=== PATIENT | female | born 1990 | race Two or more races ===

== ENCOUNTER → 2020-08-01 | Outpatient (CLI) | payer MEDICAID | END | disposition home or self-care (01) | LOC: STAR 13:07 | PROVIDERS: ATTEND Obstetrics & Gynecology | DX: Z20.822 Contact with and (suspected) exposure to COVID-19 (principal) | CPT/HCPCS: U0003; U0005 ==

== ENCOUNTER 2020-08-06 05:37 | Inpatient (IN) | payer MEDICAID ==
[~2020-08-06] VITALS: Ht 162.6 cm; Wt 72.2 kg
[2020-08-06] MEDS ORDERED: SODIUM CITRATE/CITRIC ACID 30 ML UDC PO ONE (06:00)
[2020-08-06] MEDS ORDERED: METOCLOPRAMIDE 5 MG/ML, 2ML IV ONE (06:00)
[2020-08-06] MEDS ORDERED: LACTATED RINGERS 1,000 ML IVBOLUS ONE (06:00)
[2020-08-06] MEDS ORDERED: PLEASE ENTER HEIGHT AND WEIGHT MC SCH (06:00)
[2020-08-06 06:52] LABS: BASOPHILS % (AUTO) 0 % (0-1); EOSINOPHILS % (AUTO) 2 % (1-7); LYMPHOCYTES % (AUTO) 25 % (22-44); MEAN CORPUSCULAR HEMOGLOBIN 30.4 pg (27.0-34.8); MEAN CORPUSCULAR HGB CONC 34.7 g/dL (32.4-35.8); MEAN PLATELET VOLUME 7.3 fL (7.4-10.4); MONOCYTES % (AUTO) 8 % (2-9); NEUTROPHILS % (AUTO) 65 % (42-75); PLATELET COUNT 319 x10^3/uL (130-400); RED BLOOD COUNT 4.08 x10^6/uL (3.82-5.3); RED CELL DISTRIBUTION WIDTH 13.9 % (9.6-15.2)
[2020-08-06] MEDS ORDERED: NEWBORN KIT ONE (06:57)
[2020-08-06] MEDS ORDERED: SODIUM CITRATE/CITRIC ACID 15 ML UDC ONE (06:59)
[2020-08-06] MEDS ORDERED: KETOROLAC 30 MG/1 ML ONE (07:16)
[2020-08-06] MEDS ORDERED: PHENYLEPHRINE 10 MG/ML ONE (07:16)
[2020-08-06] MEDS ORDERED: CEFAZOLIN 1,000 MG ONE (07:16)
[2020-08-06] MEDS ORDERED: ONDANSETRON 2MG/ML, 2ML ONE (07:16)
[2020-08-06] MEDS ORDERED: DEXAMETHASONE 4 MG/ML, 1ML ONE (07:16)
[2020-08-06] MEDS ORDERED: OXYTOCIN 10 UNITS/ML, 1ML ONE (07:16)
[2020-08-06] MEDS ORDERED: EPHEDRINE 50 MG/ML, 1ML ONE (07:16)
[2020-08-06] MEDS ORDERED: FENTANYL PF 100 MCG/2ML ONE (07:17)
[2020-08-06] MEDS ORDERED: PROMETHAZINE 25 MG/ML, 1ML IV PRN (07:30)
[2020-08-06] MEDS ORDERED: ONDANSETRON 2MG/ML, 2ML IVPush PRN (07:30)
[2020-08-06] MEDS ORDERED: ACETAMINOPHEN 325 MG TABLET PO PRN ×2 (07:30)
[2020-08-06] MEDS ORDERED: KETOROLAC 30 MG/1 ML IV PRN (07:30)
[2020-08-06] MEDS ORDERED: HYDROcodone/APAP 7.5-325MG/15ML UDC PO PRN (07:30)
[2020-08-06] MEDS ORDERED: ONDANSETRON 2MG/ML, 2ML IV PRN (07:30)
[2020-08-06] MEDS: LACTATED RINGERS 1,000 ML IV SCH ×8 (07:30→23:30)
[2020-08-06] MEDS ORDERED: hydrALAzine 20 MG/ML, 1ML IV PRN (07:30)
[2020-08-06] MEDS ORDERED: LABETALOL 5MG/ML, 20ML IV PRN (07:30)
[2020-08-06] MEDS ORDERED: morphine SULFATE 10 MG/ML, 1ML IM PRN (07:30)
[2020-08-06] MEDS ORDERED: MIDAZOLAM 1 MG/ML, 2ML IV PRN (07:30)
[2020-08-06] MEDS ORDERED: METOPROLOL 1 MG/ML, 5ML IV PRN (07:30)
[2020-08-06] MEDS ORDERED: MEPERIDINE/PF 25MG/0.5ML IVPush PRN (07:30)
[2020-08-06] MEDS ORDERED: ALBUTEROL SULFATE 2.5 MG/3 ML NPPB PRN (07:30)
[2020-08-06] MEDS ORDERED: DIPH,PERTUSS(ACELL),TET VAC/PF NC IM-VACC PRN (07:30)
[2020-08-06] MEDS ORDERED: FENTANYL PF 100 MCG/2ML IV PRN (07:30)
[2020-08-06] MEDS ORDERED: MEASLES,MUMPS&RUBELLA VACC/PF 0.5 ML SQ-VACC PRN (07:30)
[2020-08-06] MEDS ORDERED: CALCIUM CARBONATE 500 MG TAB.CHEW PO PRN (07:30)
[2020-08-06] MEDS ORDERED: HYDROmorphone 2 MG/ML, 1ML IVPush PRN (07:30)
[2020-08-06] MEDS ORDERED: EPHEDRINE 50 MG/ML, 1ML IVPush PRN (07:30)
[2020-08-06] MEDS ORDERED: OXYcodone 5 MG/5 ML ORAL.SOL UDC PO PRN (07:30)
[2020-08-06] MEDS ORDERED: MORPHINE SULFATE 4 MG/ML, 1ML IVPush PRN (07:30)
[2020-08-06] MEDS: KETOROLAC 30 MG/1 ML IV SCH ×3 (07:30→21:18)
[2020-08-06] MEDS ORDERED: MISOPROSTOL 200 MCG TABLET PR PRN (07:30)
[2020-08-06 07:43] LABS: AMPHETAMINE SCREEN, URINE Negative (Negative); BARBITURATE SCREEN, URINE Negative (Negative); BENZODIAZEPINE SCREEN, URINE Negative (Negative); CANNABINOID SCREEN, URINE Negative (Negative); COCAINE SCREEN, URINE Negative (Negative); METHADONE SCREEN, URINE Negative (Negative); OPIATE SCREEN, URINE Negative (Negative)
[2020-08-06] MEDS ORDERED: HYDROmorphone 2 MG/ML, 1ML ONE (07:48)
[2020-08-06] MEDS: OXYTOCIN 30U/ 0.9% NaCL 500ML 500 ML IV SCH ×2 (10:17→17:30)
[2020-08-06 10:40] VITALS: BP 111/68
[2020-08-06] MEDS: OXYcodone/APAP 5/325MG TABLET PO PRN ×4 (11:11→20:33)
[2020-08-06] MEDS ORDERED: DIPHENHYDRAMINE 25 MG CAPSULE PO PRN (12:30)
[2020-08-06] MEDS: PRENATAL VIT/IRON/FA 1 EACH TABLET PO SCH (12:41)
[2020-08-06 16:00] VITALS: BP 110/63
[2020-08-06 16:08] LABS: BASOPHILS % (AUTO) 0 % (0-1); EOSINOPHILS % (AUTO) 0 % (1-7); LYMPHOCYTES % (AUTO) 5 % (22-44); MEAN CORPUSCULAR HEMOGLOBIN 30.1 pg (27.0-34.8); MEAN CORPUSCULAR HGB CONC 34.2 g/dL (32.4-35.8); MEAN PLATELET VOLUME 7.8 fL (7.4-10.4); MONOCYTES % (AUTO) 3 % (2-9); NEUTROPHILS % (AUTO) 92 % (42-75); PLATELET COUNT 297 x10^3/uL (130-400); RED BLOOD COUNT 3.91 x10^6/uL (3.82-5.3); RED CELL DISTRIBUTION WIDTH 13.8 % (9.6-15.2)
[2020-08-06] MEDS: DOCUSATE 100 MG CAPSULE PO PRN (20:33)
[2020-08-07 00:15] VITALS: BP 100/55
[2020-08-07] MEDS: OXYcodone/APAP 5/325MG TABLET PO PRN ×6 (00:30→23:58)
[2020-08-07] MEDS: LACTATED RINGERS 1,000 ML IV SCH (03:30)
[2020-08-07] MEDS: OXYTOCIN 30U/ 0.9% NaCL 500ML 500 ML IV SCH (03:30)
[2020-08-07] MEDS: KETOROLAC 30 MG/1 ML IV SCH ×4 (03:31→22:15)
[2020-08-07 04:30] VITALS: BP 116/62
[2020-08-07 07:10] VITALS: BP 96/58
[2020-08-07] MEDS: SERTRALINE 50MG TABLET PO SCH (09:00)
[2020-08-07] MEDS: PRENATAL VIT/IRON/FA 1 EACH TABLET PO SCH (09:00)
[2020-08-07] MEDS: DOCUSATE 100 MG CAPSULE PO PRN ×2 (09:21→19:38)
[2020-08-07 20:30] VITALS: BP 110/66
[2020-08-07] MEDS ORDERED: IBUPROFEN 600 MG TABLET ONE (23:55)
[2020-08-08] MEDS: OXYcodone/APAP 5/325MG TABLET PO PRN ×5 (03:12→21:52)
[2020-08-08] MEDS ORDERED: IBUPROFEN 200 MG TABLET PO PRN (07:30)
[2020-08-08] MEDS: DOCUSATE 100 MG CAPSULE PO PRN ×2 (08:33→21:50)
[2020-08-08] MEDS: PRENATAL VIT/IRON/FA 1 EACH TABLET PO SCH (08:34)
[2020-08-08 09:00] VITALS: BP 108/68
[2020-08-08] MEDS: SERTRALINE 50MG TABLET PO SCH (09:00)
[2020-08-08] MEDS ORDERED: KETOROLAC 30 MG/1 ML IM SCH (09:00)
[2020-08-08] MEDS: KETOROLAC 60 MG/2 ML IM SCH ×3 (09:50→21:30)
[2020-08-08] MEDS: SIMETHICONE 80 MG CHEW TAB PO PRN ×2 (10:02→15:40)
[2020-08-08 20:00] VITALS: BP 142/88
[2020-08-09] MEDS: KETOROLAC 60 MG/2 ML IM SCH (03:26)
[2020-08-09] MEDS: OXYcodone/APAP 5/325MG TABLET PO PRN ×2 (03:26→07:28)
[2020-08-09] MEDS: SIMETHICONE 80 MG CHEW TAB PO PRN ×2 (03:30→07:28)
[2020-08-09] MEDS: PRENATAL VIT/IRON/FA 1 EACH TABLET PO SCH (07:28)
[2020-08-09] MEDS: DOCUSATE 100 MG CAPSULE PO PRN (07:28)
[2020-08-09] MEDS ORDERED: IBUP-1222 PO (08:25)
[2020-08-09] MEDS ORDERED: OXYC1TAB14 PO (08:25)
[2020-08-09] MEDS: SERTRALINE 50MG TABLET PO SCH (08:35)
[2020-08-09 08:45] VITALS: BP 119/74
== END 2020-08-09 10:40 | disposition home or self-care (01) | DRG 788 ==
LOC: LDIP 05:37 → 2NW 10:28
PROVIDERS: ADMIT Obstetrics & Gynecology; ATTEND Obstetrics & Gynecology
PROC: 10D00Z1 Extraction of Products of Conception, Low, Open Approach (ICD-10-PCS; principal; 2020-08-06)
DX: O69.81X0 Labor and delivery complicated by cord around neck, without compression, not applicable or unspecified (principal); Z20.822 Contact with and (suspected) exposure to COVID-19; O99.344 Other mental disorders complicating childbirth; F32.9 Major depressive disorder, single episode, unspecified; F41.9 Anxiety disorder, unspecified; F90.9 Attention-deficit hyperactivity disorder, unspecified type; O77.0 Labor and delivery complicated by meconium in amniotic fluid; O99.02 Anemia complicating childbirth; D64.9 Anemia, unspecified; Z91.040 Latex allergy status; Z3A.39 39 weeks gestation of pregnancy; Z37.0 Single live birth
CPT/HCPCS: 36415; 80307; 85025; 86592; 86850; 86900; 87635; G0378; J0690; J1100; J1170; J1885; J2405; J3010; J2370; J2590; J2765; J7120; Q0163